=== PATIENT | female | born 2000 | race Caucasian/White ===

== ENCOUNTER 2020-02-05 14:36 | Emergency (ER) | payer OTHER ==
[~2020-02-05] VITALS: Ht 162.6 cm; Wt 63.5 kg
[2020-02-05 14:48] VITALS: Ht 162.6 cm; Wt 63.5 kg
[2020-02-05 15:30] VITALS: BP 118/69
== END 2020-02-05 15:30 | disposition home or self-care (01) ==
LOC: ED 14:36
DX: L73.9 Follicular disorder, unspecified (principal)